=== PATIENT | male | born 1960 | race American Indian/Alaskan Native ===

== ENCOUNTER 2016-12-03 12:15 | Emergency (ER) | payer MEDICAID ==
[2016-12-03 12:15] VITALS: BMI 27.0
[2016-12-03] MEDS ORDERED: Sodium Chloride 0.9% 1,000 ML IV ONE ×2 (14:51→16:19)
[2016-12-03] MEDS ORDERED: Sodium Chloride 0.9% 1,000 ML ONE (15:06)
[2016-12-03 15:09] LABS: BASO # 0.1 K/uL (0.0-0.2); BASO % 1.3 % (0.0-2.0); EOS # 0.1 K/uL (0.0-0.7); EOS % 1.2 % (0.0-4.0); HEMATOCRIT 42.6 % (35.0-51.0); LYMPH # 1.1 K/uL (1.0-4.3); LYMPH % 20.3 % (20.0-40.0); MEAN CELL VOLUME 99.9 fL (80.0-94.0); MEAN CORPUSCULAR HEMOGLOBIN 32.4 pg (27.0-31.0); MEAN CORPUSCULAR HGB CONC 32.5 g/dL (33.0-37.0); MEAN PLATELET VOLUME 10.6 fL (7.2-11.7); MONO # 0.6 K/uL (0.0-0.8); RED CELL DISTRIBUTION WIDTH 19.1 % (11.5-14.5); WHITE BLOOD COUNT 5.6 K/uL (4.8-10.8)
[2016-12-03 15:13] VITALS: O2SAT 98
[2016-12-03 15:20] LABS: CHLORIDE 97 mmol/L (98-107); POTASSIUM 4.5 mmol/L (3.6-5.2); SODIUM 132 mmol/L (132-148)
[2016-12-03 15:22] LABS: ALKALINE PHOSPHATASE 150 U/L (38-126); AST/SGOT 114 U/L (17-59); BILIRUBIN,TOTAL 1.7 mg/dL (0.2-1.3); CARBON DIOXIDE 26 mmol/L (22-30); GFR AFRICAN-AMERICAN 36; TOTAL PROTEIN 7.8 g/dL (6.3-8.3)
[2016-12-03 15:23] LABS: ALT/SGPT 77 U/L (21-72); BLOOD UREA NITROGEN 26 mg/dL (9-20); CALCIUM 8.6 mg/dl (8.6-10.4); GLUCOSE,RANDOM 120 mg/dL (75-110); MAGNESIUM 1.7 mg/dL (1.6-2.3)
[2016-12-03 15:24] LABS: ALCOHOL SERUM < 10 mg/dl (0-10)
[2016-12-03 15:42] LABS: RBC URINE 25 /hpf (0-3); URINE BACTERIA RARE (<OCC); URINE BILIRUBIN NEGATIVE (NEGATIVE); URINE BLOOD 1+ (NEGATIVE); URINE COLOR Amber (YELLOW); URINE GLUCOSE (UA) 1+ mg/dL (Normal); URINE KETONE NEGATIVE (NEGATIVE); URINE PROTEIN 3+ mg/dL (NEGATIVE); WBC URINE 17 /hpf (0-5)
[2016-12-03 15:44] LABS: URINE LEUKOCYTE ESTERASE 1+ Leu/uL (Negative)
--- NOTE | 2016-12-03 17:39 | C.PDOC ---
History Of Present Illness Pt c/o feeling tremulous and muscle cramps. Chief Complaint (Nursing): Medical Clearance History Per: Patient Onset/Duration Of Symptoms: Days (about 1 week) Current Symptoms Are (Timing): Still Present Severity: Moderate Additional History Per: Prior Records Past Medical History Reviewed: Historical Data, Nursing Documentation, Vital Signs Vital Signs: Last Vital Signs Temp 98.6 F 12/03/16 15:12 Pulse 69 12/03/16 15:12 Resp 18 12/03/16 15:12 BP 149/99 H 12/03/16 15:12 Pulse Ox 98 12/03/16 17:39 - Medical History PMH: Diabetes, HTN Surgical History: Coronary Stent - [facility] Procedures CLOSED ENDOSCOPIC BIOPSY OF LARGE INTESTINE (02/13/15) CONTRAST AORTOGRAM (11/13/05) CONTRAST ARTERIOGRAM-LEG (11/13/05) CORONAR ARTERIOGR-2 CATH (11/25/12) ENDOSC POLYPECTOMY OF LG INTEST (02/13/15) ESOPHAGOGASTRODUODENOSCOPY [EGD] W/CLOSED BIOPSY (02/13/15) INSERTION OF TWO VASCULAR STENTS (05/12/13) INSRT OF DRUG-ELUTING CORON ARTERY STENTS(S) (05/12/13) LEFT HEART CARDIAC CATH (05/12/13) LT HEART ANGIOCARDIOGRAM (05/12/13) PACKED CELL TRANSFUSION (02/13/15) PERCUTANEOUS TRANSLUMINAL CORONARY ANGIOPLASTY [PTCA] (05/12/13) PROCEDURE ON SINGLE VESSEL (05/12/13) Family History: States: Unknown Family Hx - Social History Hx Tobacco Use: Yes Hx Alcohol Use: No Hx Substance Use: No - Immunization History Hx Tetanus Toxoid Vaccination: No Hx Influenza Vaccination: No Hx Pneumococcal Vaccination: No Review Of Systems Except As Marked, All Systems Reviewed And Found Negative. Constitutional: Negative for: Fever Cardiovascular: Negative for: Chest Pain Respiratory: Negative for: Shortness of Breath Gastrointestinal: Positive for: Nausea, Vomiting. Negative for: Abdominal Pain , Diarrhea Genitourinary: Negative for: Dysuria Musculoskeletal: Negative for: Neck Pain Skin: Negative for: Rash Neurological: Negative for: Weakness, Numbness, Seizures, Altered Mental Status , Headache Physical Exam - Physical Exam Appears: Non-toxic, No Acute Distress Skin: Normal Color, Warm, Dry, No Rash Head: Atraumatic, Normacephalic Eye(s): bilateral: PERRL, EOMI Neck: Normal ROM, Supple Cardiovascular: Rhythm Regular Respiratory: Normal Breath Sounds, No Accessory Muscle Use Gastrointestinal/Abdominal: Soft, No Tenderness Extremity: Normal ROM, No Deformity Neurological/Psych: Oriented x3, Normal Speech, Normal Cognition, No Cerebellar Signs, Normal Motor, Normal Sensation, Other (Pt is mildly tremulous. ) Gait: Steady ED Course And Treatment - Laboratory Results Result Diagrams: 12/03/16 15:06 12/03/16 15:06 Interpretation Of Abnormal: Renal insufficiency. Mildly abnormal LFTs. O2 Sat by Pulse Oximetry: 98 Pulse Ox Interpretation: Normal Progress Note: Pt feels much better and wants to go home. Pt denies alcohol use/ abuse. Reassessment Condition: Improved Progress - Interventions Interventions:: Observation, Intravenous fluid - Data Reviewed Data Reviewed: Lab, Old records - Patient Status Patient status: Mostly improved - Continuity of Care Discussed patient case with:: Patient, ED Nurse - Patient Plan Patient Plan: Discharge, F/U with PCP Disposition Counseled Patient/Family Regarding: Studies Performed, Diagnosis, Need For Followup, Rx Given - Disposition Disposition: HOME/ ROUTINE Disposition Time: 17:45 Condition: IMPROVED Prescriptions: Multivitamin with Minerals [Men's One Daily] 1 each PO DAILY #30 tablet Instructions: Tremors (ED) - Clinical Impression Clinical Impression: Tremulousness, Renal insufficiency, Abnormal LFTs
[2016-12-03 17:48] VITALS: BP 170/94; PULSE 90; RESP 16; TEMP 98.2
== END 2016-12-03 17:50 | disposition home or self-care (01) ==
LOC: C.ER 12:15
DX: N28.9 Disorder of kidney and ureter, unspecified (principal); R79.89 Other specified abnormal findings of blood chemistry; R25.1 Tremor, unspecified
CPT/HCPCS: 80053; 80320; 80324; 80345; 80346; 80349; 80353; 80358; 80361; 81001; 83735; 83992; 84484; 85025; 99284; J7040